=== PATIENT | male | born 1955 | race Asian ===

== ENCOUNTER 2018-01-05 21:45 | Emergency (ER) | payer SELFPAY, BC, OTHER, MEDICAID | END 2018-01-05 23:15 | disposition home or self-care (01) | LOC: E/R 21:45 | DX: I16.0 Hypertensive urgency (principal) | CPT/HCPCS: 99283; Z7502 ==

== ENCOUNTER 2018-01-13 02:02 | Emergency (ER) | payer MEDICAID ==
[2018-01-13] MEDS ORDERED: CA CHLORIDE 10% 10 ML SYRINGE (13:11)
== END 2018-01-13 03:15 | disposition home or self-care (01) ==
LOC: FTE 02:02
DX: R45.82 Worries (principal); I10 Essential (primary) hypertension
CPT/HCPCS: 93005; 99283